=== PATIENT | male | born 1990 | race Caucasian/White ===

== ENCOUNTER 2017-06-12 08:30 | Emergency (ER) | payer OTHER ==
[~2017-06-12] VITALS: Ht 180.3 cm; Wt 111.0 kg
[2017-06-12 08:35] VITALS: TEMP 36.4; Ht 180.3 cm; Wt 111.0 kg
[2017-06-12] MEDS ORDERED: ACET-1693 PO (09:44)
--- NOTE | 2017-06-12 10:42 | DIAGNOSTIC IMAGING REPORT ---
L SHOULDER MIN 2 VIEWS ROUTINE CLINICAL HISTORY: 27 years-old Male presenting with LEFT SHOULDER PAIN . TECHNIQUE: Internal rotation, external rotation, Grashey views of the left shoulder were obtained. COMPARISON: None. FINDINGS: Glenohumeral and acromioclavicular joints congruent. No advanced degenerative change. No acute fracture or malalignment. Soft tissues within normal limits. There is less portion of the left hemithorax normal. IMPRESSION: No acute osseous injury of the left shoulder. Electronically signed by: Alex Cooper M.D. 06/12/2017 10:41 AM Dictated Date/Time: 06/12/2017 10:40 AM
--- NOTE | 2017-06-12 10:43 | DIAGNOSTIC IMAGING REPORT ---
L FOOT MIN 3 VIEWS ROUTINE CLINICAL HISTORY: 27 years-old Male presenting with PLANTAR LEFT FOOT PAIN . TECHNIQUE: Frontal, oblique, and lateral views of the left foot were obtained. COMPARISON: None. FINDINGS: No acute fracture or malalignment. No advanced degenerative change. No radiographic soft tissue abnormality. IMPRESSION: No acute osseous injury. Electronically signed by: Alex Cooper M.D. 06/12/2017 10:42 AM Dictated Date/Time: 06/12/2017 10:41 AM
--- NOTE | 2017-06-12 11:36 | EMERGENCY ROOM VISIT NOTE ---
ED Visit Note First contact with patient: 08:56 CHIEF COMPLAINT: Left shoulder and left foot pain 4-6 weeks HISTORY OF PRESENT ILLNESS: Patient is a right-hand dominant 27-year-old white male who presents emergency department for evaluation of 2 complaints. He reports left anterior shoulder pain. He's had symptoms for about 4-6 weeks. He has pain primarily in the anterior aspect of the shoulder occasionally radiates to the neck. He denies any known injury or unusual activity prior to the onset of his pain. He had been to [facility] for this previously, and they told him "nothing was wrong." He has tried Tylenol, ibuprofen and Icy Hot. Secondly, the patient reports plantar left foot pain, also for the last several months. He states his pain started when he was working at local [facility] [employer] and was standing for prolonged periods of time. He now works in a fast food restaurant. He experiences pain at rest and with weightbearing, but notes that it is worse first thing in the morning when he gets out of bed. He has again tried Tylenol, ibuprofen, icy hot, massage and arch support and insoles in his shoes. Patient reports that his fiance is here being evaluated, and he figured that he would come up with her to get checked out today. REVIEW OF SYSTEMS: Review of systems as per HPI. All other systems reviewed were negative. At least 6 systems reviewed. PMH: Electronic medical records are reviewed and summarized as above/below. See Problem List. SOCIAL HISTORY: Patient lives at home with his family. He is a smoker. PHYSICAL EXAM: Vital Signs: Reviewed nurse's notes. CONSTITUTIONAL: Patient is a well-appearing 27-year-old white male who is awake and alert and in no acute distress. MUSCULOSKELETAL: Examination of the left shoulder does not demonstrate any obvious deformity. He has slight tenderness anteriorly over the proximal biceps tendon, no pain over the acromioclavicular joint or the rotator cuff insertion. Range of motion is full, he has good rotator cuff strength testing. Right upper extremity is neurovascularly intact. Examination of the left foot does not reveal any erythema or soft tissue swelling. He is tender on the plantar aspect of the foot, primarily through the arch. There is no pain over the metatarsal heads or the heel. No pain through the dorsum of the foot and range of motion is full. Left foot is neurovascularly intact. EMERGENCY DEPARTMENT COURSE: X-rays of the left foot and left shoulder were obtained, and did not note any acute bony abnormality. Differential diagnoses entertained included rotator cuff tendinitis, subacromial bursitis, possible biceps tendinitis, plantar fasciitis, stress fracture, among others. The patient was encouraged to follow-up with orthopedics if his symptoms are not improving. He was discharged at his request as his fiance was being taken to the OR. Medication reconciliation: I attest that I have personally reviewed the patient' s current medication list. Blood pressure screening : Patient was found to have normal blood pressure on screening and does not require follow-up. L FOOT MIN 3 VIEWS ROUTINE CLINICAL HISTORY: 27 years-old Male presenting with PLANTAR LEFT FOOT PAIN . TECHNIQUE: Frontal, oblique, and lateral views of the left foot were obtained. COMPARISON: None. FINDINGS: No acute fracture or malalignment. No advanced degenerative change. No radiographic soft tissue abnormality. IMPRESSION: No acute osseous injury. L SHOULDER MIN 2 VIEWS ROUTINE CLINICAL HISTORY: 27 years-old Male presenting with LEFT SHOULDER PAIN . TECHNIQUE: Internal rotation, external rotation, Grashey views of the left shoulder were obtained. COMPARISON: None. FINDINGS: Glenohumeral and acromioclavicular joints congruent. No advanced degenerative change. No acute fracture or malalignment. Soft tissues within normal limits. There is less portion of the left hemithorax normal. IMPRESSION: No acute osseous injury of the left shoulder. Current/Historical Medications Scheduled PRN Acetaminophen Tab (Tylenol), 325 MG PO for Pain Allergies Coded Allergies: Penicillins (Unverified Allergy, Intermediate, RASH, 06/12/17) Vital Signs Date Time Temp Pulse Resp B/P (MAP) Pulse Ox O2 Delivery O2 Flow Rate FiO2 06/12/17 12:06 81 18 149/91 97 Room Air 06/12/17 10:32 58 18 128/71 96 Room Air 06/12/17 08:35 36.4 94 18 121/93 98 Room Air Departure Information Impression Primary Impression: Left shoulder pain Additional Impression: Left foot pain Referrals No Doctor, Assigned (PCP) Benedict Haddad M.D. Patient Instructions [facility] [employer] Additional Instructions Ibuprofen(Motrin, Advil) may be used for fever or pain. Use 600mg every six hours as needed. Take with food. Avoid using more than 2400mg in a 24 hour period. Do not use 2400mg per day for more than three consecutive days without physician direction. Prolonged inappropriate use can lead to stomach upset or ulcers. This medication can be taken if you need to drive, work, or perform activities which may be dangerous when taking narcotic pain medication. (AND/OR) Acetaminophen(Tylenol) may be used for fever or pain. Use 1000mg every six hours as needed. Avoid using more than 3000mg in a 24 hour period. This medication can be taken if you need to drive, work, or perform activities which may be dangerous when taking narcotic pain medication. Ice compresses for 20 minutes at a time four times daily for 2-3 days. Rest and elevate your injury. Continue current medications. Return to the ER immediately for any numbness, tingling, severe pain, extreme swelling in the extremity or as needed. Follow up with [facility] for further care and management of your shoulder and foot pain. Problem Qualifiers
[2017-06-12 12:06] VITALS: BP 149/91; PULSE 81; O2SAT 97
== END 2017-06-12 12:07 | disposition home or self-care (01) ==
LOC: C.EDB 08:31 → C.EDA 12:07
DX: M25.512 Pain in left shoulder (principal); M79.672 Pain in left foot; F17.210 Nicotine dependence, cigarettes, uncomplicated; Z88.0 Allergy status to penicillin